=== PATIENT | female | born 1985 | race Caucasian/White ===

== ENCOUNTER 2024-07-16 12:52 | Emergency (ER) | payer BC ==
[~2024-07-16] VITALS: Ht 172.7 cm; Wt 73.5 kg
[2024-07-16 13:47] VITALS: TEMP 98.5
[2024-07-16] MEDS ORDERED: ONDANSETRON 4 MG TAB.RAPDIS ONE (14:28)
[2024-07-16] MEDS ORDERED: ACETAMINOPHEN ES 500 MG TABLET ONE (14:28)
[2024-07-16 14:30] LABS: PREGNANCY TEST URINE QUAL NEGATIVE (NEGATIVE)
[2024-07-16] MEDS: ACETAMINOPHEN 325 MG TABLET PO ONE (14:31)
[2024-07-16] MEDS: ONDANSETRON 4 MG TAB.RAPDIS SL ONE (14:31)
[2024-07-16] MEDS ORDERED: TYL2T PO (17:06)
[2024-07-16 17:11] VITALS: BP 129/85; O2SAT 100
[2024-07-18 22:09] LABS: CHLAMYDIA TRACHOMATIS NAA Negative (Negative); NEISSERIA GONORRHOEAE NAA Negative (Negative)
== END 2024-07-16 17:12 | disposition home or self-care (01) ==
LOC: ER 12:52
DX: M79.10 Myalgia, unspecified site (principal); R51.9 Headache, unspecified; J34.89 Other specified disorders of nose and nasal sinuses; M25.559 Pain in unspecified hip; R10.9 Unspecified abdominal pain; Z79.1 Long term (current) use of non-steroidal anti-inflammatories (NSAID); Y04.8XXA Assault by other bodily force, initial encounter; Y93.89 Activity, other specified; Y92.89 Other specified places as the place of occurrence of the external cause; Y99.8 Other external cause status
CPT/HCPCS: 99284; 70450; 72170; 73090; 73060 ×2; 73030; 70486; 74176; 84703; 87491; 87591; Q0162

== ENCOUNTER 2025-03-15 13:36 | Emergency (ER) | payer BC, OTHER ==
[~2025-03-15] VITALS: Ht 172.7 cm; Wt 70.3 kg
[~2025-03-15 13:36] MED LIST: TYL2T PO
[2025-03-15] MEDS ORDERED: PANTOPRAZOLE 40 MG VIAL ONE (14:30)
[2025-03-15] MEDS: IV NS 0.9% 1,000 ML BAG IV ONE (14:30)
[2025-03-15] MEDS ORDERED: ONDANSETRON HCL/PF 4 MG/2 ML VIAL ONE (14:30)
[2025-03-15] MEDS ORDERED: KETOROLAC TROMETHAMINE 15 MG/ML VIAL ONE (14:46)
[2025-03-15] MEDS: PANTOPRAZOLE 40 MG VIAL IV ONE (14:55)
[2025-03-15 14:56] LABS: BASOPHILS % (AUTO) 0.4 % (0.0-2.0); EOSINOPHILS # (AUTO) 0.2 K/uL (0.0-0.7); EOSINOPHILS % (AUTO) 3.2 % (0.0-6.0); HEMATOCRIT 36 % (33-45); HEMOGLOBIN 12.3 g/dL (11.5-14.8); LYMPHOCYTES # (AUTO) 1.8 K/uL (0.8-4.8); LYMPHOCYTES % (AUTO) 37.7 % (20.0-44.0); MEAN CORPUSCULAR HEMOGLOBIN 29 PG (26.0-33.0); MEAN CORPUSCULAR HGB CONC 34 g/dl (31.0-36.0); MEAN CORPUSCULAR VOLUME 86 fL (82-100); MONOCYTES # (AUTO) 0.4 K/uL (0.1-1.30); MONOCYTES % (AUTO) 8.3 % (2.0-12.0); NEUTROPHILS # (AUTO) 2.4 K/uL (1.8-8.9); NEUTROPHILS % (AUTO) 50.4 % (43.0-81.0); PLATELET COUNT (AUTO) 177 K/uL (150-450); RED BLOOD CELL COUNT(AUTO) 4.23 MIL/uL (4.0-5.2); RED CELL DISTRIBUTION WIDTH 14.6 % (11.5-15.0); WHITE BLOOD COUNT (AUTO) 4.8 K/uL (4.3-11.0)
[2025-03-15] MEDS: KETOROLAC TROMETHAMINE 15 MG/ML VIAL IV ONE (14:56)
[2025-03-15] MEDS: ONDANSETRON HCL/PF 4 MG/2 ML VIAL IVP ONE (14:56)
[2025-03-15 15:01] LABS: ALBUMIN 3.6 g/dL (3.4-5.0); BILIRUBIN,DIRECT 0.1 mg/dL (0.0-0.2); BILIRUBIN,TOTAL 0.5 mg/dL (0.2-1.0); CALCIUM, SERUM 8.6 mg/dL (8.5-10.1); CREATININE 0.6 mg/dL (0.6-1.3); POTASSIUM 4.1 mmol/L (3.5-5.1); TOTAL PROTEIN, SERUM 7.3 g/dL (6.4-8.2)
[2025-03-15] MEDS ORDERED: IV NS 0.9% 250 ML IV ONE (15:10)
[2025-03-15] MEDS ORDERED: IOHEXOL-300 100 ML VIAL IV ONE (15:10)
[2025-03-15 15:27] LABS: APPEARANCE,URINE CLEAR (CLEAR); BILIRUBIN,URINE NEGATIVE (NEGATIVE); BLOOD, URINE TRACE-INTA Ery/uL (NEGATIVE); COLOR,URINE YELLOW (YELLOW); KETONES,URINE NEGATIVE (NEGATIVE); LEUKOCYTE ESTERASE ,URINE NEGATIVE (NEGATIVE); NITRITE, URINE NEGATIVE (NEGATIVE); PROTEIN,URINE NEGATIVE (NEGATIVE); UGLUCOSE NEGATIVE (NEGATIVE); UROBILINOGEN,URINE 0.2 EU/dL (0.2)
[2025-03-15 16:06] LABS: BACTERIA,URINE Moderate /HPF (None Seen); SQUAMOUS EPITHELIAL CELL,UR Moderate /HPF (None Seen)
[2025-03-15 16:08] LABS: ADD URINE CULTURE YES; WBC,URINE 0-2 /HPF (0-3)
[2025-03-15 17:03] VITALS: BP 101/64; TEMP 98.6; O2SAT 95
== END 2025-03-15 17:04 | disposition home or self-care (01) ==
LOC: ER 13:49
DX: R10.30 Lower abdominal pain, unspecified (principal); R11.0 Nausea; F19.10 Other psychoactive substance abuse, uncomplicated; R07.9 Chest pain, unspecified; Z90.49 Acquired absence of other specified parts of digestive tract
CPT/HCPCS: 99285; 74177; 96374; 96375; 71045; 96361; 93005; 85025; 80048; 87086; 83690; 80076; 84703; 81001; 36415; J1885; J2405; J7030; J7050; J2470; A4223; Q9967